=== PATIENT | female | born 1950 | race Hispanic/Latino ===

== ENCOUNTER → 2018-05-24 | Outpatient (CLI) | payer OTHER ==
[~2018-05-24] VITALS: Ht 157.5 cm; Wt 51.3 kg
[~2018-05-24] MED LIST: AMLO10TA2 PO; CARB1TAB23 PO; FERR325T22 PO; LISI2.5T2 PO; METF10004 PO; METO-409 PO; NAPR-1023 PO; PANT40TA25 PO; PRAV40TA3 PO; REGADENOSON 0.4 MG/5 ML PF SYG IVP SCH
== END | disposition home or self-care (01) ==
LOC: SHCH 08:26
PROVIDERS: ATTEND Internal Medicine Cardiovascular Disease
DX: I10 Essential (primary) hypertension (principal); Z95.5 Presence of coronary angioplasty implant and graft
CPT/HCPCS: 78452; 93017; 96374; A9500 ×2; J2785